=== PATIENT | female | born 1965 | race Caucasian/White ===

== ENCOUNTER 2017-05-13 11:47 | Emergency (ER) | payer OTHER ==
[2017-05-13 11:54] VITALS: BP 113/75
== END 2017-05-13 13:24 | disposition home or self-care (01) ==
LOC: ED 11:47
DX: S93.401A Sprain of unspecified ligament of right ankle, initial encounter (principal); M19.90 Unspecified osteoarthritis, unspecified site; E11.9 Type 2 diabetes mellitus without complications; Z79.84 Long term (current) use of oral hypoglycemic drugs; X50.1XXA Overexertion from prolonged static or awkward postures, initial encounter; Y93.89 Activity, other specified; Y99.8 Other external cause status; Y92.89 Other specified places as the place of occurrence of the external cause

== ENCOUNTER 2018-03-22 15:29 | Inpatient (IN) | payer OTHER ==
[~2018-03-22] VITALS: Ht 157.5 cm; Wt 70.8 kg
[2018-03-22 15:35] VITALS: Ht 157.5 cm; Wt 70.8 kg
[2018-03-22 16:07] LABS: BASOPHIL % 0.8 % (0-2); PLATELET COUNT 275 x10^3mcL (130-400); RED CELL DISTRIBUTION WIDTH 12.8 % (11.5-14.5)
[2018-03-22 16:13] LABS: CALCIUM 8.5 mg/dL (8.5-10.1); CARBON DIOXIDE 23.7 mmol/L (21-32); CHLORIDE SERUM 109 mmol/L (98-107); CREATININE SERUM 0.6 mg/dL (0.6-1.0); GFR1 > 60 mL/min; GLUCOSE SERUM 105 mg/dL (74-106); POTASSIUM SERUM 3.6 mmol/L (3.5-5.1); SODIUM SERUM 145 mmol/L (136-145)
[2018-03-22] MEDS ORDERED: METFORMIN HYD1000 M2 PO (16:39)
[2018-03-22 16:56] LABS: microscopic required? NO
[2018-03-22 17:05] LABS: CHOLESTEROL/HDL RATIO 4.3; MAGNESIUM 1.7 mg/dL (1.8-2.4); PHOSPHOROUS 2.9 mg/dL (2.5-4.9)
[2018-03-22 17:08] LABS: urine erythrocyte NEGATIVE (NEGATIVE)
[2018-03-22 17:11] LABS: T3 TOTAL 0.98 ng/mL
[2018-03-22 17:13] LABS: FREE T4 0.99 ng/dL (0.76-1.46); FREE THYROXINE INDEX 2.6 ug/dL (1.4-4.5); T4(THYROXINE) 7.7 ug/dL (4.7-13.3)
[2018-03-22 17:28] LABS: AMPHETAMINE QUAL UR NONE DETECTED (See below)
[2018-03-22 19:32] VITALS: BP 154/67
[2018-03-23 04:51] VITALS: BP 103/64
[2018-03-23 07:56] LABS: BASOPHIL % 0.6 % (0-2); PLATELET COUNT 254 x10^3mcL (130-400)
[2018-03-23 09:17] VITALS: BP 121/77
[2018-03-23 09:29] LABS: CALCIUM 8.1 mg/dL (8.5-10.1); CARBON DIOXIDE 23.3 mmol/L (21-32); CHLORIDE SERUM 109 mmol/L (98-107); CREATININE SERUM 0.7 mg/dL (0.6-1.0); GFR1 > 60 mL/min; GLUCOSE SERUM 217 mg/dL (74-106); MAGNESIUM 1.9 mg/dL (1.8-2.4); PHOSPHOROUS 2.8 mg/dL (2.5-4.9); POTASSIUM SERUM 3.6 mmol/L (3.5-5.1); SODIUM SERUM 143 mmol/L (136-145)
[2018-03-23 12:19] VITALS: BP 117/71
[2018-03-23] MEDS ORDERED: MOT600 PO (13:47)
[2018-03-23] MEDS ORDERED: LIPI10 PO (13:47)
[2018-03-23 14:10] VITALS: BP 117/71
[2018-03-23 17:37] VITALS: BP 134/66
== END 2018-03-23 19:47 | disposition home or self-care (01) | DRG 203 ==
LOC: ED 15:29 → DU 16:21
PROVIDERS: Emergency Medicine; Family Medicine
DX: M94.0 Chondrocostal junction syndrome [Tietze] (principal); I74.9 Embolism and thrombosis of unspecified artery; E11.65 Type 2 diabetes mellitus with hyperglycemia; E83.42 Hypomagnesemia; E83.51 Hypocalcemia; E78.5 Hyperlipidemia, unspecified; M19.90 Unspecified osteoarthritis, unspecified site; E66.9 Obesity, unspecified; Z68.32 Body mass index [BMI] 32.0-32.9, adult; Z79.84 Long term (current) use of oral hypoglycemic drugs; Z79.899 Other long term (current) drug therapy; Z56.0 Unemployment, unspecified
CPT/HCPCS: 82962; 83880; 84439; 85378; 97110-GP; J1885; J3010; J7030; Q0092; Q0162

== ENCOUNTER 2019-03-27 11:57 | Emergency (ER) | payer OTHER ==
[~2019-03-27] VITALS: Ht 152.4 cm; Wt 67.1 kg
[~2019-03-27 11:57] MED LIST: LIPI10 PO; METFORMIN HYD1000 M2 PO; MOT600 PO
[2019-03-27 12:03] VITALS: Ht 152.4 cm; Wt 67.1 kg
[2019-03-27 13:00] LABS: BASOPHIL % 0.8 % (0-2); PLATELET COUNT 305 x10^3mcL (130-400); RED CELL DISTRIBUTION WIDTH 13.3 % (11.5-14.5)
[2019-03-27 13:19] LABS: ALKALINE PHOSPHATASE 71 U/L (46-116); ALT/SGPT 26 U/L (14-59); AST/SGOT 15 U/L (15-37); BILIRUBIN TOTAL 0.33 mg/dL (0.20-1.00); CALCIUM 7.9 mg/dL (8.5-10.1); CARBON DIOXIDE 25.4 mmol/L (21-32); CHLORIDE SERUM 107 mmol/L (98-107); CREATININE SERUM 0.7 mg/dL (0.6-1.0); GFR1 > 60 mL/min; GLUCOSE SERUM 168 mg/dL (74-106); POTASSIUM SERUM 3.7 mmol/L (3.5-5.1); SODIUM SERUM 141 mmol/L (136-145); TOTAL PROTEIN, SERUM 7.4 g/dL (6.4-8.2)
[2019-03-27 13:20] LABS: ALBUMIN 3.3 g/dL (3.4-5.0)
[2019-03-27 13:48] VITALS: BP 161/87
== END 2019-03-27 13:48 | disposition home or self-care (01) ==
LOC: ED 11:57
PROVIDERS: Emergency Medicine
DX: R07.89 Other chest pain (principal); F41.9 Anxiety disorder, unspecified; E11.9 Type 2 diabetes mellitus without complications; M19.90 Unspecified osteoarthritis, unspecified site; Z98.890 Other specified postprocedural states
CPT/HCPCS: 36415; Q0092

== ENCOUNTER 2019-12-27 21:11 | Inpatient (IN) | payer OTHER ==
[~2019-12-27] VITALS: Ht 152.4 cm; Wt 67.1 kg
[2019-12-27 21:20] VITALS: Ht 152.4 cm; Wt 67.1 kg
--- NOTE | 2019-12-27 21:47 | NUR ---
54/F C/O NUMBNESS LEFT SIDE OF FACE AND LEFT ARM X 3 WEEKS. PT STATES THAT LEFT SIDE FACIAL PAIN AND CHEST PRESSURE AND LEFT ARM NUMBNESS X 3 WEEKS. DENIES INJURY OR TRAUMA. STATES THAT SHE WAS SEEN AT [facility] [place] FACIAL NUMBNESS UNABLE TO RECALL DX. NO FACIAL DROOPING AT TIME OF ASSESSMENT. LEFT ARM WEAKNESS NOTED WITH BILATERAL RECYCLABLE MATERIALS DISTRIBUTOR TEST. PT ALSO STATES THAT GENERALIZED THURSTON 1 WEEK. PT PLACED IN GOWN AND ON FULL CM. RESP EVEN AND UNLABORED. LUNGS CTA. NSR WITH PVC'S NOTED ON CM. AA/OX4. WILL CONT TO MONITOR.
--- NOTE | 2019-12-27 22:01 | NUR ---
PT ABLE TO AMBULATE WITH STEADY GAIT. ROM RIGHT ARM WNL. WILL CONT TO MONITOR.
[2019-12-27 22:23] LABS: BASOPHIL % 0.4 % (0-2); PLATELET COUNT 305 x10^3mcL (130-400); RED CELL DISTRIBUTION WIDTH 13.3 % (11.5-14.5)
--- NOTE | 2019-12-27 22:29 | NUR ---
PT LAYING I NBED AWAKE AND ALERT. STATES THAT CHEST PRESSURE AND LEFT ARM ARE STILL THERE. CHEST PRESSURE 6/10. RESP EVEN AND UNLABORED. WILL CONT TO MONITOR.
[2019-12-27 22:42] LABS: CALCIUM 9.5 mg/dL (8.5-10.1); CARBON DIOXIDE 31.1 mmol/L (21-32); CHLORIDE SERUM 101 mmol/L (98-107); CREATININE SERUM 0.8 mg/dL (0.6-1.0); GFR1 > 60 mL/min; GLUCOSE SERUM 202 mg/dL (74-106); POTASSIUM SERUM 3.3 mmol/L (3.5-5.1); SODIUM SERUM 140 mmol/L (136-145)
[2019-12-27 22:51] LABS: ALBUMIN 3.8 g/dL (3.4-5.0); ALKALINE PHOSPHATASE 87 U/L (46-116); ALT/SGPT 40 U/L (14-59); AST/SGOT 17 U/L (15-37); BILIRUBIN TOTAL 0.23 mg/dL (0.20-1.00); MAGNESIUM 1.9 mg/dL (1.8-2.4); TOTAL PROTEIN, SERUM 7.9 g/dL (6.4-8.2)
--- NOTE | 2019-12-27 23:21 | NUR ---
PT USED BED TREVIÑO. AWAKE AND ALERT. STATES THAT CHEST PRESSURE IS STILL 5/10. PT ON FULL CM. RESP EVEN AND UNLABORED. WILL CONT TO MONITOR.
[2019-12-27 23:27] LABS: microscopic required? NO
--- NOTE | 2019-12-27 23:32 | NUR ---
PT TAKEN TO CT. RESP EVEN AND UNLABORED. AWAKE AND ALERT.
[2019-12-27 23:36] LABS: urine erythrocyte NEGATIVE (NEGATIVE)
--- NOTE | 2019-12-28 00:07 | NUR ---
PT AWAKE AND ALERT. LAYING IN BED IN POSITION OF COMFORT. RESP EVEN AND UNLABORED. STATES THAT THURSTON IS STILL 5/10. MD AWARE. WILL CONT TO MONITOR.
--- NOTE | 2019-12-28 01:16 | NUR ---
PT USED BED TREVIÑO. RESP EVEN AND UNLABORED. AWAKE AND ALERT. STATES THAT THURSTON IS 6/10. MD AWARE. WILL CONT TO MONITOR.
--- NOTE | 2019-12-28 01:21 | NUR ---
REPORT GIVEN TO SUNIL DIAZ TO ASSUME CARE OF PT.
--- NOTE | 2019-12-28 01:59 | NUR ---
REPORT TO MARTHA DIAZ
--- NOTE | 2019-12-28 02:01 | NUR ---
REPORT RECEIVED FROM SUNIL RN FOR CONTINUITY OF CARE. PATIENT AWAKE, ALERT, AND ORIENTED X3. ALBANIAN SPEAKING. WILL CONTINUE TO MONITOR. CALL LIGHT WITHIN REACH.
[2019-12-28] MEDS ORDERED: APAP EXTRA STR500 MG (02:41)
[2019-12-28 03:05] LABS: FREE T4 0.95 ng/dL (0.76-1.46); FREE THYROXINE INDEX 2.1 ug/dL (1.4-4.5); T4(THYROXINE) 6.3 ug/dL (4.7-13.3)
--- NOTE | 2019-12-28 03:17 | NUR ---
REPORT GIVEN TO JOE PHILLIPS EXT. [phone]. PATIENT MADE AWARE. WILL CONTINUE TO MONITOR.
[2019-12-28 03:32] LABS: T3 TOTAL 0.92 ng/mL
--- NOTE | 2019-12-28 03:35 | NUR ---
PT TRANSPORTED TO [facility] ON CM BY DARYA DIAZ AND REYNA DIAZ. WITH NAD
[2019-12-28 03:54] VITALS: BP 164/87
--- NOTE | 2019-12-28 04:13 | NUR ---
RECEIVED PT. FROM ER VIA [facility] ACCOMPANIED BY ER NURSE. PT. IS AWAKE, ALERT, ORIENTED X4. DENIES DIZZINESS. C/O MILD HEADACHE. C/O LT. FACIAL NUMBNESS. NO FACIAL DROOPING NOTED. ALSO C/O LUE NUMBNESS. NO WEAKNESS NOTED. FULL ROM NOTED TO BUE. PT. ABLE TO AMBULATE TO RESTROOM WITH STEADY GAIT. BREATH SOUNDS CLEAR THROUGHOUT LUNG LUCERO, RESP. EVEN, UNLABORED. NO SOB NOTED. PT. ON RA. NSR ON MONITOR. NO ECTOPIES NOTED. NO EDEMA TO BLE. PEDAL PULSES STRONG. ABD. SOFT AND ROUND, BOWEL SOUNDS ACTIVE. NO C/O ABD. PAIN, NO NAUSEA. CALL LIGHT PLACED WITHIN REACH.
[2019-12-28 06:47] LABS: BASOPHIL % 0.7 % (0-2); CALCIUM 8.5 mg/dL (8.5-10.1); CARBON DIOXIDE 25.9 mmol/L (21-32); CHLORIDE SERUM 106 mmol/L (98-107); CREATININE SERUM 0.6 mg/dL (0.6-1.0); GFR1 > 60 mL/min; GLUCOSE SERUM 159 mg/dL (74-106); MAGNESIUM 1.8 mg/dL (1.8-2.4); PHOSPHOROUS 3.6 mg/dL (2.5-4.9); PLATELET COUNT 294 x10^3mcL (130-400); POTASSIUM SERUM 3.6 mmol/L (3.5-5.1); RED CELL DISTRIBUTION WIDTH 13.3 % (11.5-14.5); SODIUM SERUM 141 mmol/L (136-145)
--- NOTE | 2019-12-28 07:15 | NUR ---
SEEN AOX4, NOT IN DISTRESS, TELE 2, NSR, PALPABLE PULSES, NO EDEMA, CTA ON BLF, +BS, VOIDS WITH NO DYSURIA, GENERALIZED WEAKNESS, ABLE TO AMBULATE , SLOW, L SIDED HAND PSYCHOLOGY ASSOCIATE WEAK, SKIN DRY AND INTACT, NO PAIN AT THIS TIME, VERBALIZED WEAKNESS ON WHOLE LEFT SIDE, IV INTACT AND PATENT, NO REDNESS OR SWELLING. CALL LIGHT WITHIN REACH. BED AT LOWEST POSITION. SIDE RAILS UP.
--- NOTE | 2019-12-28 08:17 | NUR ---
MRI FORMS SIGNED BY PATIENT AND PLACED IN CHART. CALLED RADIOLOGY DEPARTMENT AND MADE AWARE PATIENT TOOK 2 TBSP OF EGG AND HALF OF BREAD. KEPT PATIENT ON NPO.
--- NOTE | 2019-12-28 08:47 | NUR ---
DR CAMPBELL MADE AWARE TO ORDER CXR AND EKG PRIOR TO MRI SCAN
--- NOTE | 2019-12-28 08:52 | NUR ---
MEDICATIONS GIVEN PER EMAR. METHOTREXATE NOT GIVEN . WAITING FOR PHARMACY TO [facility].
[2019-12-28 09:12] VITALS: BP 125/81
--- NOTE | 2019-12-28 10:36 | NUR ---
SPOKE WITH EBONIE CHUN AND CONFIRMED PATIENT HAS HER MRI CHECKLIST SIGNED . PER EBONIE SHE WILL CALL BACK FOR AVAILABILITY OF PERSONNEL TO SCAN PATIENT.
[2019-12-28 12:11] VITALS: BP 135/75
--- NOTE | 2019-12-28 13:26 | NUR ---
PATIENT TRANSPRTED TO MRI BY EBONIE VEGA.
--- NOTE | 2019-12-28 14:11 | NUR ---
TELEMONITOR INSTALLED BACK TO PATIENT.TELE 2 NSR, HR 65
[2019-12-28 14:27] VITALS: BP 110/64
--- NOTE | 2019-12-28 16:20 | NUR ---
ACCUCHECK DONE WITH CBG 104 NO INSULIN REQUIRED.
[2019-12-28 17:07] VITALS: BP 123/75
--- NOTE | 2019-12-28 18:20 | NUR ---
P.T. NOTES P.T. EVAL COMPLETED; AMBULATORY WITHOUT ASST DEVICE; ENDORSED TO NURSING.
--- NOTE | 2019-12-28 19:20 | NUR ---
PT RECEIVED FROM AM NURSE. PT A/O X4, ABLE TO MAKE NEEDS KNOWN, SPEECH IS CLEAR, NO FACIAL DROOP NOTED, NO ARM DRIFT OBSERVED, BRANDO HAND GRASPS STRONG AND EQUAL. PT REPORTS HAVING LEFT-SIDED FACIAL NUMBNESS. TELE #2, PT DENIES ANY CP/PRESSURE. PULSES PALPABLE, NO EDEMA PRESENT. BREATHING IS EVEN AND UNLABORED, NO RESP DISTRESS NOTED. ABD SOFT AND NONDISTENDED, DENIES ANY N/V. VOIDS FREELY, BRP. MILD GENERALIZED WEAKNESS, AMBULATORY W/ STEADY GAIT. SKIN IS WARM AND DRY, INTACT. PT C/O 7 HEADACHE, WILL MEDICATE W/ PRN PAIN MED. IV TO RAC, PATENT AND INTACT. NO ACUTE DISTRESS NOTED. BED IN LOWEST SETTING, SIDE RAILS UP X2, CALL LIGHT WITHIN REACH. WILL CONT TO MONITOR.
--- NOTE | 2019-12-28 20:03 | NUR ---
PT C/O 02/02 HEADACHE, PRN TYLENOL GIVEN PER EMAR. NO ACUTE DISTRESS NOTED. WILL CONT TO MONITOR.
[2019-12-28 20:48] VITALS: BP 134/77
--- NOTE | 2019-12-29 00:57 | NUR ---
PT RESTING IN BED WITH EYES CLOSED, BUT IS EASILY AROUSABLE. BREATHING IS EVEN AND UNLABORED ON RA, NO RESP DISTRESS NOTED. PT DENIES HAVING ANY PAIN AT THIS TIME. IV TO RAC INTACT. NO ACUTE DISTRESS NOTED. CALL LIGHT WITHIN REACH. WILL CONT TO MONITOR.
[2019-12-29 05:32] VITALS: BP 143/63
--- NOTE | 2019-12-29 05:45 | NUR ---
PT SLEPT WELL THROUGHOUT THE EVENING. BREATHING IS EVEN AND UNLABORED, NO RESP DISTRESS NOTED. SPEECH REMAINS CLEAR, NO FACIAL DROOP NOTED, BRANDO HAND GRASPS EQUAL, NO ARM DRIFT OBSERVED. PT DENIES HAVING ANY PAIN AT THIS TIME. IV TO RFA INTACT. NO ACUTE CHANGES ENCOUNTED DURING SHIFT. ALL NEEDS MET AND ANTICIPATED. CALL LIGHT WITHIN REACH. WILL ENDORSE CARE TO AM NURSE.
[2019-12-29 06:58] LABS: BASOPHIL % 0.6 % (0-2); PLATELET COUNT 296 x10^3mcL (130-400); RED CELL DISTRIBUTION WIDTH 13.6 % (11.5-14.5)
--- NOTE | 2019-12-29 07:09 | NUR ---
PT IN NO ACUTE DISTRESS. CONTINUITY OF CARE ENDORSED TO AM NURSE. ALL QUESTIONS AND CONCERNS ADDRESSED.
--- NOTE | 2019-12-29 07:10 | NUR ---
SEEN AOX4, NOT IN DISTRESS,L SIDED NUMBNESS, TELE 2 , NSR, PALPABLE PULSES, NO EDEMA, CTA ON BLF, +BS, LAST BM 12/27/19, VOIDS WITH NO DYSURIA, GENERALIZED WEAKNESS, FULL ROM , SLOW, SKIN DRY AND INTACT, NO PAIN AT THIS TIME, IV INTACT AND PATENT TO RAC, NO REDNESS OR SWELLING,CALL LIGHT WITHIN REACH. BED AT LOWEST POSITION, SIDE RAILS UP.
[2019-12-29 07:28] LABS: CALCIUM 8.7 mg/dL (8.5-10.1); CARBON DIOXIDE 27.2 mmol/L (21-32); CHLORIDE SERUM 105 mmol/L (98-107); CREATININE SERUM 0.6 mg/dL (0.6-1.0); GFR1 > 60 mL/min; GLUCOSE SERUM 137 mg/dL (74-106); PHOSPHOROUS 4.7 mg/dL (2.5-4.9); POTASSIUM SERUM 3.7 mmol/L (3.5-5.1); SODIUM SERUM 143 mmol/L (136-145)
[2019-12-29 08:12] VITALS: BP 113/54
--- NOTE | 2019-12-29 08:38 | NUR ---
MEDICATIONS GIVEN PER EMAR.
[2019-12-29] MEDS ORDERED: TREXALL7.5 MG PO (10:56)
[2019-12-29] MEDS ORDERED: AUGMENTIN 875-1 EACH PO (10:57)
[2019-12-29 11:21] VITALS: BP 113/54
[2019-12-29] MEDS ORDERED: METHOTREXATE2.5 M2 PO (11:25)
--- NOTE | 2019-12-29 11:35 | NUR ---
DR CAMPBELL MADE AWARE OF METHOTREXATE DRUG INTERACTION WITH AUGMENTIN. PER DR CAMPBELL, METHOTREXATE IS TAKEN ONCE A WEEK, AUGMENTIN WILL BE GIVEN FOR 5 DAYS. IT SHOULDN'T BE AFFECTED. PHARMACIST FERNANDO MADE AWARE AND SHE VERBALIZED SHE WILL FILL PRESCRIPTION AND TAKE NOT OF IT.
--- NOTE | 2019-12-29 11:51 | NUR ---
DISCHARGE INSTRUCTIONS GIVEN, INSTRUCTED TO TAKE MEDICATION PRESCRIBED , AUGMENTIN TWICE A DAY FOR 5 DAYS AND METHOTREXATE ON 01/04/20 SINCE PATIENT TOOK METHOTREXATE ON 12/28/19. INFORMED PATIENT THAT METHOTREXATE MEDICATION HAS DRUG TO DRUG INTERACTION WITH AUGMENTIN SO IT IS BEST NOT TO COMBINE THE TWO. PATIENT UNDERSTOOD INSTRUCTIONS. INSTRUCTED TO BRING BELONGINGS WITH PATIENT, TO FF UP WITH DR GARZA SCHEDULED. IV REMOVED. CATHETER INTACT, NO REDNESS OR SWELLING.
[2019-12-29] MEDS ORDERED: LEVAQUIN750 MG PO (12:15)
[2019-12-29] MEDS ORDERED: LIPI10 PO (12:15)
[2019-12-29] MEDS ORDERED: ASPIRIN CHILDRE81 MG PO (12:15)
--- NOTE | 2019-12-29 12:16 | NUR ---
ACCUCHECK DONE WITH CBG 136. NO INSULIN REQUIRED.
--- NOTE | 2019-12-29 12:40 | NUR ---
DISCHARGED PER WHEELCHAIR. ACCOMPANIED BY MARJORIE AYALA
--- NOTE | 2019-12-29 12:46 | NUR ---
TELE 2 REM[facility]
== END 2019-12-29 12:44 | disposition home or self-care (01) | DRG 58 ==
LOC: ED 21:11 → DU 12-28 02:03
PROVIDERS: Emergency Medicine; ADMIT Family Medicine; ATTEND Family Medicine
DX: R20.0 Anesthesia of skin (principal); E11.65 Type 2 diabetes mellitus with hyperglycemia; E78.5 Hyperlipidemia, unspecified; M06.9 Rheumatoid arthritis, unspecified; Z79.84 Long term (current) use of oral hypoglycemic drugs
CPT/HCPCS: 82962; 84439; A9577; G0378; J7040; J8610; Q9967